=== PATIENT | female | born 1990 | race Caucasian/White ===

== ENCOUNTER 2023-10-19 07:56 | Inpatient (IN) | payer BC, SELFPAY ==
[2023-10-19] VITALS (8 sets, daily range): BP systolic 109–140; BP diastolic 70–95; BMI 36.3
[2023-10-19 09:09] LABS: Hematocrit 28.7 % (37.0-47.0); Hemoglobin 9.3 g/dL (12.0-16.0); Mean Corp Hgb Conc. 32.4 g/dL (33.0-37.0); Mean Corpuscular Hgb 26.3 pg (27.0-31.0); Mean Corpuscular Volume 81.1 fL (81.0-99.0); Mean Platelet Volume 12.3 fL (7.4-10.4); Platelet Count 178 10^3/uL (130-400); Red Blood Cell Count 3.54 10^6/uL (4.20-5.40); Red Cell Dist. Width 13.7 % (11.5-14.5); White Blood Cell Count 10.4 10^3/uL (4.8-10.8)
[2023-10-19] MEDS: TYLENOL 1000 MG PO (11:50)
[2023-10-19] MEDS: BICITRA 30 ML PO (13:48)
[2023-10-19] MEDS: ANCEF 10 IV (13:48)
[2023-10-19 16:29] LABS: Hematocrit 23.9 % (37.0-47.0); Hemoglobin 7.8 g/dL (12.0-16.0); Platelet Count 179 10^3/uL (130-400)
[2023-10-19 16:44] LABS: Fibrinogen 447 MG/DL (199-459)
[2023-10-19] MEDS: ZOFRAN 4 MG IV (19:19)
[2023-10-19] MEDS: LR 1000 IV (22:21)
[2023-10-20] MEDS: TYLENOL 650 MG PO ×5 (00:22→23:20)
[2023-10-20] MEDS: LR IV ×3 (05:24→22:30)
[2023-10-20 05:58] LABS: Hematocrit 26.2 % (37.0-47.0); Hemoglobin 8.6 g/dL (12.0-16.0); Mean Corp Hgb Conc. 32.8 g/dL (33.0-37.0); Mean Corpuscular Hgb 27.6 pg (27.0-31.0); Mean Platelet Volume 12.2 fL (7.4-10.4); Platelet Count 161 10^3/uL (130-400); Red Blood Cell Count 3.12 10^6/uL (4.20-5.40); White Blood Cell Count 21.7 10^3/uL (4.8-10.8)
[2023-10-20] MEDS: PRENATAL PLUS 1 TABLET PO (08:01)
--- NOTE | 2023-10-20 08:06 | W.PN.ANS.POP ---
Anesthesia Post Operative
- Anesthesia Post Op Note
Vital Signs Stable-See Nursing Note: Yes
Airway Patent: Yes
Adequate Pain Control: Yes
Change in Mental Status: No
Current Postoperative Nausea & Vomiting: No
Anesthesia Complications: No
General Anesthetic Recall: No
Unplanned Admission: No
Post Op Hydration Adequate: Yes
[2023-10-20] MEDS: MOTRIN 600 MG PO ×3 (10:42→23:20)
[2023-10-20] MEDS: MYLICON 80 MG PO (20:45)
[2023-10-20] MEDS: SENOKOT-S 1 TABLET PO (20:45)
[2023-10-21] MEDS: TYLENOL 650 MG PO ×3 (06:15→20:07)
[2023-10-21] MEDS: MOTRIN 600 MG PO ×3 (06:15→20:06)
[2023-10-21] MEDS: PRENATAL PLUS 1 TABLET PO (09:41)
[2023-10-21] MEDS: MYLICON 80 MG PO ×2 (13:03→20:08)
[2023-10-21 14:53] LABS: Syphilis/T. pallidum Ab Reflex Negative (Negative)
[2023-10-22] MEDS: MOTRIN 600 MG PO (04:45)
[2023-10-22] MEDS: TYLENOL 650 MG PO (04:45)
--- NOTE | 2023-10-22 08:02 | W.DS.TRANS ---
DC Summary - [employer]
-
Discharge Instructions:
Discharge Diagnosis/Procedures Section
Instructions:
Stand-Alone Forms: LDRP Delivery
Changes to Home Medications: No
Discharge Medications:
DC Medications w/original date entered in [facility]
prenat.vits,seth,kao-uynq-ehdbu 1 tab PO 1XD Supplement 10/19/23
acetaminophen 325 mg tablet 650 mg (2 x 325 mg) PO Q4HPRN PRN mild pain #0 tabs 10/22/23
ibuprofen 600 mg tablet 600 mg PO Q6HPRN PRN cramps #45 tabs 10/22/23
sennosides 8.6 mg-docusate sodium 50 mg tablet (Stool Softener-Stimulant Laxative) 1 tab PO DAILYPRN PRN constipation #0 tabs 10/22/23
Home Medication Changes
Pending Results: No
[2023-10-22] MEDS: PRENATAL PLUS 1 TABLET PO (08:43)
== END 2023-10-22 11:31 | disposition home or self-care (01) | DRG 785 ==
LOC: LDRP 07:56
PROVIDERS: ADMITTING PHYSICIAN Obstetrics & Gynecology; FAMILY PHYSICIAN Family Medicine
PROC: 30233N1 Transfusion of Nonautologous Red Blood Cells into Peripheral Vein, Percutaneous Approach (ICD-10-PCS; 2023-10-19)
PROC: 10D00Z1 Extraction of Products of Conception, Low, Open Approach (ICD-10-PCS; 2023-10-19)
PROC: 0UT70ZZ Resection of Bilateral Fallopian Tubes, Open Approach (ICD-10-PCS; 2023-10-19)
DX: O34.218 Maternal care for other type scar from previous cesarean delivery (principal); O69.81X0 Labor and delivery complicated by cord around neck, without compression, not applicable or unspecified; O67.8 Other intrapartum hemorrhage; O99.02 Anemia complicating childbirth; Z30.2 Encounter for sterilization; Z37.0 Single live birth; Z3A.39 39 weeks gestation of pregnancy
CPT/HCPCS: 88302; 36415; 58605; 85014; 85018; 85027; 85049; 85384; 86780; 86850; 86900; 86901; 86920; P9016